=== PATIENT | female | born 1940 | race Caucasian/White ===

== ENCOUNTER → 2016-11-26 | Outpatient (CLI) | payer MEDICARE, BC ==
[~2016-11-26] MED LIST: ABILIFY2 MG; AMANTADINE HCL100 M2 PO; ARICEPT ODT10 MG PO; LANTUS100 U/ML SQ; LIORESAL 1010 MG/TAB PO; METFORMIN ER500 MG PO; MIRTAZAPINE15 MG PO; SIMVASTATIN80 MG PO; TENORMIN25 MG PO
== END ==
LOC: LAB 11:00
DX: N39.0 Urinary tract infection, site not specified (principal)

== ENCOUNTER → 2017-07-13 | Outpatient (CLI) | payer MEDICARE, BC ==
[2011-11-17 13:06] VITALS: BP 149/57
== END ==
LOC: LAB 09:45
DX: G35 Multiple sclerosis (principal)

== ENCOUNTER → 2017-08-05 | Outpatient (CLI) | payer MEDICARE, BC ==
[2011-11-17 13:06] VITALS: BP 149/57
== END ==
LOC: LAB 17:00
DX: N39.0 Urinary tract infection, site not specified (principal)